=== PATIENT | male | born 1965 | race Caucasian/White ===

== ENCOUNTER 2016-08-27 14:49 | Emergency (ER) | payer OTHER ==
[2016-08-27 15:03] VITALS: O2SAT 95
--- NOTE | 2016-08-27 15:33 | EDPHY ---
H & P Time Seen by Provider: 08/27/16 15:12 HPI/ROS: CHIEF COMPLAINT: Rectal pain HISTORY OF PRESENT ILLNESS: Patient had receptive anal intercourse last weekend. He had a hard bowel movement 2 days ago. Yesterday he started having rectal pain which is worse with bowel movement. No fever or chills and no vomiting. REVIEW OF SYSTEMS: He has had a persistent cough for the last [address] Mclean who did a chest x-ray and some other evaluation, and ultimately referred him to an paleology teacher. Also describes feeling of urinary urgency. No dysuria or hematuria. No weakness or numbness in extremities, no back pain. PAST MEDICAL HISTORY: Hypertension and hypothyroid Social history: Here with partner General Appearance: Alert and conversant, cooperative. Abdomen soft and nontender. Male normal. Rectal exam: External exam shows no discoloration redness induration fluctuance or swelling. No hemorrhoids are seen. Internal exam including anoscopy unable to be performed because of pain. Anal fissure seen at 6 o'clock position posteriorly. Ambulatory. Emergency Department course/MDM: Bladder scan 30 mL Treatment of anal fissure discussed. Dibucaine ointment, stool softener, surgical referral if not improving. I think that perirectal or pelvic abscess is unlikely. I think that urinary retention is unlikely given bladder scan. Smoking Status: Never smoked Constitutional: Initial Vital Signs Temperature (C) 36.8 C 08/27/16 15:00 Heart Rate 72 08/27/16 15:00 Respiratory Rate 16 08/27/16 15:00 Blood Pressure 136/88 H 08/27/16 15:00 O2 Sat (%) 95 08/27/16 15:00 O2 Delivery Mode Room Air Allergies/Adverse Reactions: NSAIDS (Non-Steroidal Anti-Inflamma Allergy (Severe, Verified 08/27/16 15:03) throat closes up Home Medications: Medication Instructions Recorded Albuterol [Proventil Inhaler HFA 1 - 2 puffs IH Q4H 08/27/16 (*)] Alfuzosin HCl [Alfuzosin HCl ER] 10 mg PO 08/27/16 Atenolol [Tenormin 50 mg (*)] 50 mg PO 08/27/16 Dibucaine 28 gm TP Q6 PRN #1 oint...g. 08/27/16 Docusate Sodium [Colace 100 MG (*)] 100 mg PO BID #20 cap 08/27/16 Emtricitabine/Tenofovir [Truvada 1 tab PO DAILY8 08/27/16 200MG/300MG (*)] FLUTICASONE/SALMETEROL [ADVAIR HFA 1 puffs IH 08/27/16 230-21 MCG INHALER] Montelukast Sodium [Singulair 4 mg 4 mg PO 08/27/16 (*)] Testosterone IM [Testosterone 100 mg IM 08/27/16 100mg/ml IM inj (*)] Departure - Departure Disposition: Home, Routine, Self-Care Clinical Impression: Anal fissure Condition: Good Instructions: Anal Fissure (ED) Referrals: Estuardo Mclean MD [Primary Care Provider] - As per Instructions Marshal Carrasco MD [Medical Doctor] - 2-3 days, if not improved Prescriptions: Dibucaine 28 gm TP Q6 PRN #1 oint...g. PRN Reason: rectal pain Docusate Sodium [Colace 100 MG (*)] 100 mg PO BID #20 cap
[2016-08-27 16:02] VITALS: BP 149/94; PULSE 76; RESP 20; TEMP 98.1
== END 2016-08-27 16:02 | disposition home or self-care (01) ==
DX: K60.2 Anal fissure, unspecified (principal); I10 Essential (primary) hypertension

== ENCOUNTER 2016-08-29 11:21 | Emergency (ER) | payer OTHER ==
[2016-08-29] MEDS ORDERED: HYDROCODONE/APAP 5/325 TAB PO ONE (12:33)
[2016-08-29] MEDS ORDERED: ONDANSETRON DISINTEGRATING 4 MG TAB ONE (12:36)
[2016-08-29] MEDS ORDERED: ONDANSETRON DISINTEGRATING 4 MG TAB PO ONE (12:38)
--- NOTE | 2016-08-29 12:46 | EDPHY ---
H & P Stated Complaint: anal fissure exacerbation Time Seen by Provider: 08/29/16 12:35 HPI/ROS: CHIEF COMPLAINT: Rectal pain HISTORY OF PRESENT ILLNESS: The patient is a 51-year-old man who comes to the emergency department complaining of continued pain with defecation. He received rectal intercourse last week and then a large bowel movement few days ago and was seen in the emergency department diagnosed with a rectal fissure. Has been given dibucain cream and was using [id number] suppositories. He states that today he was not able to insert the suppository due to pain. He was concerned that there was some type of obstruction. REVIEW OF SYSTEMS: Constitutional: denies: chills, fever, recent illness, recent injury EENTM: denies: blurred vision, double vision, nose congestion Respiratory: denies: cough, shortness of breath Cardiac: denies: chest pain, irregular heart rate, lightheadedness, palpitations Gastrointestinal/Abdominal: denies: abdominal pain, diarrhea, nausea, vomiting, blood streaked stools Genitourinary: denies: dysuria, frequency, hematuria, pain Musculoskeletal: denies: joint pain, muscle pain Skin: denies: lesions, rash, jaundice, bruising Neurological: denies: headache, numbness, paresthesia, tingling, dizziness, weakness Hematologic/Lymphatic: denies: blood clots, easy bleeding, easy bruising Immunologic/allergic: denies: HIV/AIDS, transplant EXAM: GENERAL: Well-appearing, well-nourished and in no acute distress. HEAD: Atraumatic, normocephalic. EYES: Pupils equal round and reactive to light, extraocular movements intact, sclera anicteric, conjunctiva are normal. ENT: TMs normal, nares patent, oropharynx clear without exudates. Moist mucous membranes. NECK: Normal range of motion, supple without lymphadenopathy or JVD. LUNGS: Breath sounds clear to auscultation bilaterally and equal. No wheezes rales or rhonchi. HEART: Regular rate and rhythm without murmurs, rubs or gallops. ABDOMEN: Soft, nontender, normoactive bowel sounds. No guarding, no rebound. No masses appreciated. : Patient with small rectal fissure at 6 o'clock. Small internal hemorrhoid with Valsalva. Stool palpable on rectal exam with minimal bleeding, significant pain BACK: No CVA tenderness, no spinal tenderness, step-offs or deformities EXTREMITIES: Normal range of motion, no pitting or edema. No clubbing or cyanosis. NEUROLOGICAL: Cranial nerves II through XII grossly intact. Normal speech, normal gait. 5/5 strength, normal movement in all extremities, normal sensation PSYCH: Normal mood, normal affect. SKIN: Warm, dry, normal turgor, no visible rashes or lesions. Source: Patient Exam Limitations: No limitations - Personal History Current Tetanus/Diphtheria Vaccine: Yes Current Tetanus Diphtheria and Acellular Pertussis (TDAP): Unsure - Medical/Surgical History Hx Asthma: Yes Other PMH: HTN. thyroid. low testosterone - Family History Significant Family History: No pertinent family hx - Social History Smoking Status: Never smoked Alcohol Use: Sober Drug Use: None Constitutional: Initial Vital Signs Temperature (C) 36.7 C 08/29/16 11:46 Heart Rate 75 08/29/16 11:46 Respiratory Rate 16 08/29/16 11:46 O2 Sat (%) 95 08/29/16 11:46 O2 Delivery Mode Room Air Allergies/Adverse Reactions: NSAIDS (Non-Steroidal Anti-Inflamma Allergy (Severe, Verified 08/27/16 15:03) throat closes up Home Medications: Medication Instructions Recorded Albuterol [Proventil Inhaler HFA 1 - 2 puffs IH Q4H 08/27/16 (*)] Alfuzosin HCl [Alfuzosin HCl ER] 10 mg PO 08/27/16 Atenolol [Tenormin 50 mg (*)] 50 mg PO 08/27/16 Dibucaine 28 gm TP Q6 PRN #1 oint...g. 08/27/16 Docusate Sodium [Colace 100 MG (*)] 100 mg PO BID #20 cap 08/27/16 Emtricitabine/Tenofovir [Truvada 1 tab PO DAILY8 08/27/16 200MG/300MG (*)] FLUTICASONE/SALMETEROL [ADVAIR HFA 1 puffs IH 08/27/16 230-21 MCG INHALER] Montelukast Sodium [Singulair 4 mg 4 mg PO 08/27/16 (*)] Testosterone IM [Testosterone 100 mg IM 08/27/16 100mg/ml IM inj (*)] Medical Decision Making ED Course/Re-evaluation: The patient has a follow-up appoint with Dr. Erazo in 15 minutes I encouraged him to keep that appointment. He was very rude to me and staff. Very sarcastic and stating that he cannot tell what is going on his he cannot stick his head up his own ass. He was given Vicodin by nursing protocol. I told him that this would probably make him more constipated and that narcotics were bad choice for him. I encouraged him to continue with Sitz baths, creams and suppositories. Differential Diagnosis: Partial list of the Differential diagnosis considered include but were not limited to; rectal fissure, hemorrhoid, constipation and although unlikely based on the history and physical exam, I also considered foreign body, abscess. I discussed these differential diagnoses and the plan with the patient as well as the usual and expected course. The patient understands that the diagnosis is provisional and that in medicine we are not always correct and that further workup is often warranted. Usual and customary warnings were given. All of the patient's questions were answered. The patient was instructed to return to the emergency department should the symptoms at all worsen or return, otherwise to followup with the physician as we discussed. - Data Points Medications Given: Discontinued Medications Hydrocodone Bitart/Acetaminophen (Leonard 5/325) 1 tab PO EDNOW ONE Stop: 08/29/16 12:34 Last Admin: 08/29/16 12:38 Dose: 1 tab Ondansetron HCl (Zofran Odt) 4 mg PO EDNOW ONE Stop: 08/29/16 12:39 Last Admin: 08/29/16 12:38 Dose: 4 mg Departure - Departure Disposition: Home, Routine, Self-Care Clinical Impression: Rectal fissure Condition: Fair Instructions: Rectal Bleeding (ED) Referrals: Estuardo Mclean MD [Primary Care Provider] - As per Instructions Roamn Erazo MD [Medical Doctor] - As per Instructions
[2016-08-29 12:59] VITALS: BP 153/104; PULSE 91; RESP 18; TEMP 97.9; O2SAT 94
== END 2016-08-29 13:00 | disposition home or self-care (01) ==
DX: K60.0 Acute anal fissure (principal); J45.909 Unspecified asthma, uncomplicated; I10 Essential (primary) hypertension